=== PATIENT | female | born 1955 | race Caucasian/White ===

== ENCOUNTER 2017-04-18 07:50 | Outpatient (CLI) | payer BC | END 2017-04-18 07:51 | disposition home or self-care (01) | LOC: BICMAMMO 07:50 | PROVIDERS: ATTEND Obstetrics & Gynecology | DX: Z12.31 Encounter for screening mammogram for malignant neoplasm of breast (principal) | CPT/HCPCS: 77063; 77067 ==

== ENCOUNTER 2018-04-25 07:51 | Outpatient (CLI) | payer BC | END 2018-04-25 07:52 | disposition home or self-care (01) | LOC: BICMAMMO 07:51 | PROVIDERS: ATTEND Obstetrics & Gynecology | DX: Z12.31 Encounter for screening mammogram for malignant neoplasm of breast (principal); Z80.3 Family history of malignant neoplasm of breast; Z98.82 Breast implant status | CPT/HCPCS: 77063; 77067 ==

== ENCOUNTER 2019-05-01 08:12 | Outpatient (CLI) | payer MEDICARE, OTHER ==
--- NOTE | 2019-05-01 09:48 | MMO ---
Bilateral MAMMO Bilat Screen [facility]. CLINICAL HISTORY: Patient is 64 years old and is seen for screening. The patient has no family history of breast cancer. The patient has no personal history of cancer. The patient has a history of bilateral Implants at age 26 - benign. VIEWS: The views performed were: bilateral craniocaudal; bilateral craniocaudal with tomosynthesis; bilateral mediolateral oblique; bilateral mediolateral oblique with tomosynthesis; and bilateral Implant displaced with tomosynthesis. FILMS COMPARED: The present examination has been compared to prior imaging studies performed at [facility] on 02/09/2015, 04/16/2016, 04/18/2017 and 04/25/2018. This study has been interpreted with the assistance of computer-aided detection. MAMMOGRAM FINDINGS: There are scattered fibroglandular densities. Bilateral implants are stable. There are no suspicious masses, suspicious calcifications, or new areas of architectural distortion. IMPRESSION: THERE IS NO MAMMOGRAPHIC EVIDENCE OF MALIGNANCY. A ROUTINE FOLLOW-UP MAMMOGRAM IN 1 YEAR IS RECOMMENDED. THE RESULTS OF THIS EXAM WERE SENT TO THE PATIENT. ACR BI-RADS Category 2 - Benign finding MAMMOGRAPHY NOTE: 1. A negative mammogram report should not delay a biopsy if a dominant of clinically suspicious mass is present. 2. Approximately 10% to 15% of breast cancers are not detected by mammography. 3. Adenosis and dense breasts may obscure an underlying neoplasm. Reported by: ANGEL TAFOYA MD Electonically Signed: [id number]
== END 2019-05-01 08:13 | disposition home or self-care (01) ==
LOC: BICMAMMO 08:12
PROVIDERS: ATTEND Obstetrics & Gynecology
DX: Z12.31 Encounter for screening mammogram for malignant neoplasm of breast (principal); Z98.82 Breast implant status
CPT/HCPCS: 77063; 77067

== ENCOUNTER 2019-09-02 12:39 | Outpatient (CLI) | payer MEDICARE ==
--- NOTE | 2019-09-02 14:17 | MRI ---
MRI Cervical spine without contrast: HISTORY: Chronic neck pain and weakness in bilateral hands. COMPARISON: None FINDINGS: The craniocervical junction is unremarkable. No significant cord signal abnormality. Paravertebral soft tissues have a normal appearance and normal signal intensity. Rounded area of increased T1 and T2-weighted signal intensity is seen in the C4 vertebral body demons trating characteristics is most compatible with a hemangioma. C1-2:No significant stenosis. C2-3: Mild facet degenerative changes are seen. There is a mild broad-based disc osteophyte complex w hich slightly effaces the ventral subarachnoid space. Neural foramina are patent. C3-4: Mild broad-based disc osteophyte complex and facet degenerative changes are present. This narro ws the ventral subarachnoid space and results in mild generalized narrowing of the central spinal canal. Severe bilateral neural foraminal narrowing is noted. C4-5: Broad-based disc osteophyte complex is present which effaces the ventral subarachnoid space. Un cinate process hypertrophy is present at this level. Findings result in severe bilateral neural foraminal narrowing. C5-6: Disc osteophyte complex with uncinate process hypertrophy bilaterally but greater on the left. There is mild effacement of the ventral subarachnoid space. Mild bilateral neural foraminal narrowing is present greater on the left. C6-7: Disc osteophyte complex is present. There is effacement of the ventral subarachnoid space. Righ t neural foramen is patent, but there is mild to moderate left-sided neural foraminal narrowing. C7-T1: No significant central canal or neural foraminal narrowing. T1-2 level: Axial images were not obtained through this level which limits evaluation, but based on s agittal imaging, there is a broad-based disc osteophyte complex with central disc protrusion. This effaces the ventral subarachnoid space and encroaches on the anterior aspect of the spinal cord. Neur al foramina at this level are not adequately assessed without axial imaging, but provided sagittal images suggest possibility of severe bilateral neural foraminal narrowing. IMPRESSION: 1. Multilevel disc degenerative changes as described above with severe bilateral neural foraminal merlene rowing at the C3-4 and C4-5 levels. 2. Broad-based disc osteophyte complex and central disc protrusion at T1-2 level. Axial imaging was n ot obtained through this level, but there is suggestion of severe bilateral neural foraminal narrowing at this level based on the sagittal images. If surgery is contemplated at this level, the p atient should return for axial imaging through this level for more adequate evaluation.
--- NOTE | 2019-09-02 14:19 | MRI ---
MRI LUMBAR SPINE WITHOUT CONTRAST: 09/02/19 INDICATIONS: Lumbar radiculopathy. FINDINGS: Lumbar vertebrae maintain normal height and alignment. Vertebral body signal is normal. There are deg enerative disc changes throughout the lumbar spine. Loss of disc space is most prominent at L5-S1. De generative spurring is most pronounced anteriorly at the L2-3 level. There are two inferior end plate deformities involving the L2 vertebra with degenerative end plate changes present. L1-2: No disc bulge or protrusion. No central canal or foraminal stenosis. L2-3: Broad based disc bulge. Mild facet and ligamentous hypertrophy. No significant central canal or foraminal stenosis. L3-4: Broad based disc bulge flattens the thecal sac. Facet and ligamentous hypertrophy with posterio r epidural fat. Mild central canal [id number]. Mild foraminal stenosis bilaterally. L4-5: Broad based disc bulge flattens the thecal sac. Moderate facet hypertrophy. Mild to moderate ce ntral canal stenosis. Bilateral foraminal narrowing more severe on the left. L5-S1: Mild diffuse disc bulge. No central canal stenosis. Left foraminal stenosis secondary to disc osteophyte complex projecting into the left foramina and contacting the exiting left L5 nerve root. IMPRESSION: Degenerative disc changes at multiple levels with posterior disc bulge producing central canal and fo raminal stenosis as described above. POS: TAHIR
== END 2019-09-02 12:40 | disposition home or self-care (01) ==
LOC: SCSMRI 12:39
DX: M51.17 Intervertebral disc disorders with radiculopathy, lumbosacral region (principal); M54.2 Cervicalgia; G89.29 Other chronic pain; R29.898 Other symptoms and signs involving the musculoskeletal system; M51.36 Other intervertebral disc degeneration, lumbar region; M48.061 Spinal stenosis, lumbar region without neurogenic claudication; M48.07 Spinal stenosis, lumbosacral region; M47.812 Spondylosis without myelopathy or radiculopathy, cervical region; M48.02 Spinal stenosis, cervical region; M25.78 Osteophyte, vertebrae; M51.24 Other intervertebral disc displacement, thoracic region
CPT/HCPCS: 72141; 72148

== ENCOUNTER 2019-11-27 07:56 | Outpatient (CLI) | payer MEDICARE ==
--- NOTE | 2019-11-27 09:05 | MRI ---
MR OF THE THORACIC SPINE WITHOUT CONTRAST INDICATION: Hand numbness and neck pain TECHNIQUE: Multiplanar multisequence MR images were obtained of the thoracic spine without contrast. Spine count series was provided. COMPARISON: None FINDINGS: Bone marrow signal intensity: Normal Spinal alignment: Normal Spinal cord: Normal signal intensity and contour. Paravertebral soft tissues: Normal Vertebral levels: T1-T2: There is a broad-based disc bulge causing mild central canal narrowing and mild effacement of ventral subarachnoid space without cord compression. There is severe bilateral neural foraminal narrowing due to the broad-based disc bulge and mild facet hypertrophy. T2-T3: There is moderate left and mild right facet joint hypertrophy. No appreciable central canal or neural foraminal narrowing demonstrated. T3-T4: No appreciable central canal or neural foraminal narrowing.. T4-T5: No appreciable central canal or neural foraminal narrowing. T5-T6: No appreciable central canal or neural foraminal narrowing. T6-T7: No appreciable central canal or neural foraminal narrowing. T7-T8: There is moderate right facet joint degenerative change inducing mild right neural foraminal n arrowing. T8-T9: There is facet hypertrophy inducing mild right neural foraminal narrowing. T9-T10: No appreciable central canal or neural foraminal narrowing. T10-T11: No appreciable central canal or neural foraminal narrowing. T11-T12: No appreciable central canal or neural foraminal narrowing. T12-L1: No appreciable central canal or neural foraminal narrowing. Additional findings: None. IMPRESSION: 1. Broad-based disc bulge at T1-T2 induces mild central canal narrowing with severe bilateral neural foraminal narrowing. 2. Mild right neural foraminal narrowing at T7-T8 and T8-T9 due to facet joint hypertrophy. 3. Mild multilevel thoracic spondylosis.
== END 2019-11-27 07:57 | disposition home or self-care (01) ==
LOC: SCSMRI 07:56
DX: M51.24 Other intervertebral disc displacement, thoracic region (principal); R29.898 Other symptoms and signs involving the musculoskeletal system; M47.814 Spondylosis without myelopathy or radiculopathy, thoracic region; M48.04 Spinal stenosis, thoracic region; M89.38 Hypertrophy of bone, other site
CPT/HCPCS: 72146

== ENCOUNTER 2020-05-12 14:41 | Outpatient (CLI) | payer MEDICARE | END 2020-05-12 14:42 | disposition home or self-care (01) | LOC: BICMAMMO 14:41 | PROVIDERS: ATTEND Obstetrics & Gynecology | DX: Z12.31 Encounter for screening mammogram for malignant neoplasm of breast (principal); Z98.82 Breast implant status | CPT/HCPCS: 77063; 77067 ==

== ENCOUNTER 2021-03-30 14:01 | Outpatient (CLI) | payer MEDICARE | END 2021-03-30 14:02 | disposition home or self-care (01) | LOC: BICRAD 14:01 | DX: G62.9 Polyneuropathy, unspecified (principal); M79.604 Pain in right leg; G57.11 Meralgia paresthetica, right lower limb; Z98.1 Arthrodesis status | CPT/HCPCS: 72072 ==

== ENCOUNTER 2021-06-15 11:26 | Outpatient (CLI) | payer MEDICARE | END 2021-06-15 11:27 | disposition home or self-care (01) | LOC: SCSMRI 11:26 | PROVIDERS: ATTEND Electrodiagnostic Medicine | DX: M47.22 Other spondylosis with radiculopathy, cervical region (principal); Z98.890 Other specified postprocedural states | CPT/HCPCS: 72141 ==

== ENCOUNTER 2021-08-15 08:30 | Outpatient (CLI) | payer MEDICARE | END 2021-08-15 08:31 | disposition home or self-care (01) | LOC: SCSCT 08:30 | PROVIDERS: ATTEND Pain Medicine Interventional Pain Medicine | DX: Z47.89 Encounter for other orthopedic aftercare (principal); Z98.1 Arthrodesis status | CPT/HCPCS: 72128 ==

== ENCOUNTER 2024-09-02 07:54 | Outpatient (CLI) | payer MEDICARE | END 2024-09-02 07:55 | disposition home or self-care (01) | LOC: BICMAMMO 07:54 | PROVIDERS: ATTEND Internal Medicine | DX: M85.89 Other specified disorders of bone density and structure, multiple sites (principal) | CPT/HCPCS: 77080 ==